=== PATIENT | female | born 1955 | race Caucasian/White ===

== ENCOUNTER → 2017-10-30 | Outpatient (CLI) | payer BC ==
[~2017-10-30] MED LIST: AMLO10TA3 PO; CALC500C70 PO; CLB/200 PO; CONJ0.3T3 PO; KLN/5 PO; METO-217 PO; OMEG10007 PO; PANT40TA PO
--- NOTE | 2017-10-30 10:25 | Discharge Instructions ---
Discharge Instructions Procedure Procedure Date: Oct 30, 2017. Reason for visit: Left Breast Mass. Discharge Discharge Date: Oct 30, 2017. Discharge Diagnosis: post bilateral breast ultrasound guided core biopsies Instructions Activity Recommendations: Additional Limitations (see below) Return to School/Work: no limitations Recommended Home Diet: No Limitations Provider Instructions: ACTIVITY RECOMMENDATIONS: * No lifting, pushing, pulling or exercising the affected side for three days. RETURN TO SCHOOL/WORK: * You may return to work/school after the procedure, but do not perform any strenuous activities for 24 to 48 hours. MEDICATIONS: * Tylenol (two 325 mg) every four to six hours if needed for mild pain (if not allergic to Tylenol). DIET: * Resume previous diet. SPECIAL CARE INSTRUCTIONS: * Keep biopsy site dry for 24 hours. May shower after 24 hours, but do not soak (bathe) incision. May remove Tegaderm (plastic patch) 24 hours after procedure * Leave the steri-strips on for one week. Allow the steri-strips to fall off by themselves. If not off after one week, you may remove them. You may place a Bandaid crosswise over the strips, if desired. * Apply ice 10 minutes on and 10 minutes off as needed. * Wear a bra at bedtime to sleep more comfortably for 2-3 days. * Your referring physician should have the results after approximately 5 to 7 business days. * Call for unusual bleeding, fever, drainage, etc or if you have any questions call [phone] during normal business hours or after hours call Dr Mcginnis, . FOLLOW UP VISIT: Follow-up with Referring Physician as scheduled. Allergies Coded Allergies: No Known Allergies (Verified , 10/10/17) Maria Del Rosario Appiah Recommendations: Call your doctor if: * Temperature above 101 degrees * Pain not relieved by pain medicine ordered * There is increased drainage or redness from any incision * You have any unanswered questions or concerns. Your Doctors Instructions noted above were prepared by provider Lyssa Mcginnis. Patient Signature Section: Patient Instructions Signature Page Hans Lewis Patient (or Guardian) Signature/Date: I have read and understand the instructions given to me by my caregivers. Caregiver/RN/Doctor Signature/Date: The above-named patient and/or guardian has received patient instructions on this date. + Original Patient Signature Page (only) stays with chart. Please make copy for patient.
--- NOTE | 2017-10-30 15:10 | MAMMOGRAPHY REPORT ---
ULTRASOUND GUIDED BIOPSY RIGHT BREAST: 10/30/2017 CLINICAL HISTORY: Patient presents for biopsy in the left 9:00 breast for an 8 x 9 mm mass identified on targeted ultrasound during diagnostic workup at an outside institution. Prior to this biopsy, brenda ateral tomosynthesis images were also obtained given that they were not performed [facility]. Please refer the report from left breast ultrasound-guided core biopsy performed at the same time for full detail. IMPRESSION: ULTRASOUND GUIDED BIOPSY Please refer to the report from left breast ultrasound-guided core biopsy performed at the same time for full detail. Lyssa Mcginnis M.D. ay/:10/30/2017 12:22:20 Attending Technologist: RT Marva(Analy)(M), [facility] Photographer Motion Picture: Lyssa Mcginnis, [facility]
--- NOTE | 2017-10-30 15:10 | MAMMOGRAPHY REPORT ---
THIS REPORT HAS BEEN AMENDED. ULTRASOUND GUIDED BIOPSY LEFT BREAST: 10/30/2017 CLINICAL HISTORY: 62-year-old woman presented for ultrasound-guided core biopsy of an indeterminate 8 x 9 mm mass in the 9:00 left breast, 3 cm from the nipple identified during workup at an outside ins titution. Prior to the biopsy, I performed bilateral tomosynthesis mammograms, as they were not done at the outside institution, as some subtle findings are only seen on the 3D images. COMPARISON: Comparison is made to exams dated: 10/11/2017 mammogram, 09/08/2015 mammogram, 11/22/2013 m ammogram, 10/03/2011 mammogram, 10/05/2010 mammogram, and 09/18/2017 mammogram. PATIENT CONSENT: The procedure, risks and benefits were discussed with the patient and informed conse nt was obtained both verbally and in writing. Specific risks to this procedure include: bleeding, in fection, puncture of adjacent structure, nontarget biopsy, sampling error, pain, metal allergy and me dication reaction. FINDINGS: First bilateral CC and MLO tomosynthesis images were performed. There is a gently lobulate d, partially circumscribed 10 x 5 x 5 mm mass in the lower inner anterior left breast, which correspo nds with the ultrasound findings seen in the 9:00 axis, 3 cm from the nipple. This is the intended t arget for today's ultrasound-guided core biopsy. No other suspicious masses, asymmetries, areas of a rchitectural distortion or suspicious calcifications are identified in the left breast on the tomosyn thesis images. However, there is nodularity in the posterior 6:00 to 7:00 right breast, with the largest masslike co mponent seen in the 7:00 posterior breast measuring approximately 8 x 4 x 5 mm. Further evaluation w ith ultrasound was performed in the right breast. Targeted ultrasound performed today in the right 6:00 and 7:00 breast demonstrates a small anechoic a nd isoechoic solid versus cystic mass in the 6:00 periareolar right breast measuring 3.1 x 2.3 x 2.4 mm. There is a slightly larger gently lobulated hypoechoic solid versus cystic mass in the 7:00 righ t breast, 4 cm from the nipple, measuring 6.5 x 3.2 x 5.1 mm. This likely correlates with the nodula rity seen mammographically and ultrasound-guided core biopsy of this largest indeterminate hypoechoic solid versus cystic mass in the 7:00 right breast is also recommended. Therefore, the plan will be to biopsy masses in both breasts. Please see below. PROCEDURE DESCRIPTION: A time out was performed and both breasts were agreed as sites of ultrasound-g uided core biopsy. First the mass in the 9:00 left breast was identified and targeted for biopsy. T he skin of the left breast was prepped and draped in the usual sterile fashion. The left 9:00 breast mass was identified. Subcutaneous and intraparenchymal 1% buffered lidocaine, with and without epine phrine, was administered as local anesthesia. A skin incision was made. Through the incision, four s amples were taken with a 14 gauge Achieve biopsy device. A ribbon shaped metallic marker was placed a t the biopsy site. Hemostasis was achieved after manual compression. The patient tolerated the proced ure well and there was no immediate complication. Second, the 7 mm mass in the 7:00 right breast was identified and targeted for biopsy. The skin of t he right breast was cleansed with Betadine and sterile drapes were placed. 1% buffered lidocaine wit h and without epinephrine was administered as local anesthesia. A small skin incision was made in th e right breast. Through the incision, four samples were taken with a 14 gauge Achieve biopsy device. A ribbon shaped metallic marker was placed at the biopsy site. Hemostasis was achieved after manual compression. The patient tolerated the procedure well and there was no immediate complication. All of the samples were sent to the pathology department in appropriately labeled containers. New ribbon-shaped biopsy marker clips are seen in each breast. The left breast biopsy clip aligns wi th the mammographic mass in question and the right biopsy clip aligns with the oval mammographic mass in question in the 7:00 posterior breast. No significant postbiopsy hematoma identified bilaterally . Pending benign pathology results, would recommend a follow-up right diagnostic tomosynthesis mammo gram and repeat targeted ultrasound to ensure stability of the non-biopsied mixed isoechoic and anech oic 3 mm mass in the 6:00 right breast. IMPRESSION: ULTRASOUND GUIDED BIOPSY 1. Prior to biopsy bilateral tomosynthesis images were performed which demonstrated nodularity in th e 6:00 to 7:00 right breast for which a diagnostic ultrasound was performed and biopsy was recommende d of a dominant indeterminate solid versus cystic 7 mm mass seen in the 7:00 right breast. Therefore , bilateral breast biopsies were performed during today's appointment. 2. Status post biopsy of the right breast mass at 7:00, and left breast mass at 9:00, with biopsy ma rker clips placed at each site. 3. Pending benign pathology results, would recommend a follow-up right diagnostic tomosynthesis mamm ogram and a repeat targeted ultrasound in the 6:00 axis, for the small non-biopsied solid versus cyst ic mass identified on today's ultrasound workup. The patient will receive notification of the biopsy results from her referring physician. Lyssa Mcginnis M.D. ay/:10/30/2017 12:30:50 Attending Technologist: RT Marva(Analy)(M), [facility] Licensed Physical Therapist Assistant: Lyssa Mcginnis, [facility] AMENDMENT: 11/01/2017 Lyssa Mcginnis M.D. Pathology results from ultrasound-guided core biopsy of an 8 x 9 mm solid-appearing mass in the 9:00 left breast yielded a fibroadenoma. 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 The pathology results from bilateral biopsies are benign and concordant with the imag ing appearance. However, it is somewhat controversial whether all intraductal papillomas without atypical features, s uch as this case, require follow-up excisional biopsy. Additionally, a six-month follow-up is still recommended for the non-biopsied small, 3.1 mm mass in the 6:00 periareolar right breast identified o n targeted ultrasound. Could consider surgical consultation for discussion of options, with regard t o surgical excisional biopsy versus continued follow-up imaging.
--- NOTE | 2017-10-30 15:12 | MAMMOGRAPHY REPORT ---
BILATERAL DIGITAL DIAGNOSTIC MAMMOGRAM TOMOSYNTHESIS WITH CAD: 10/30/2017 CLINICAL HISTORY: 62-year-old woman presented for biopsy of the left 9:00 breast mass. Preliminary to mosynthesis images also found a possible mass in the 6:00 to 7:00 right breast for which targeted ult rasound and ultimately ultrasound-guided core biopsy was also performed. Please refer to the report from left breast ultrasound-guided core biopsy performed at the same time for full detail. COMPARISON: Prior mammograms dated 09/18/2017, 09/08/2015, 11/22/2013, 10/03/2011, 10/05/2010. IMPRESSION: POST PROCEDURE IMAGING FOR MARKER PLACEMENT Please refer to the report from left breast ultrasound-guided core biopsy performed at the same time for full detail. Some breast cancers are not detected with mammography. A negative mammographic report should not luz y biopsy if a clinically suggestive mass is present. Lyssa Mcginnis M.D. ay/:10/30/2017 10:27:11 Fruit Buying Grader: RT Marva(Analy)(M), [facility] BI-RADS Code: Post Procedure Imaging For Marker Placement
--- NOTE | 2017-10-31 14:45 | MAMMOGRAPHY REPORT ---
ULTRASOUND OF RIGHT BREAST: 10/30/2017 CLINICAL HISTORY: 62-year-old woman initially presented for biopsy of the solid-appearing mass in the 9:00 left breast, identified at an outside institution. Prior to the biopsy, tomosynthesis images of both breasts were performed to ensure no subtle distortions existed prior to the left breast biopsy. An area of nodularity was noted in the 6:00 to 7:00 posterior right breast on the tomosynthesis imag es for which targeted second look ultrasound was performed in the right breast. Please refer to the report from left breast ultrasound-guided core biopsy performed at the same time for full detail. IMPRESSION: ACR BI-RADS CATEGORY 4: SUSPICIOUS Please refer to the report from left breast ultrasound-guided core biopsy performed at the same time for full detail. Lyssa Mcginnis M.D. ay/:10/30/2017 16:11:48 Attending Technologist: RT Marva(Analy)(M), [facility] Floor Assembler: Lyssa Mcginnis, [facility] letter sent: Abnormal 4/5 BI-RADS Code: ACR BI-RADS Category 4: Suspicious
== END | disposition home or self-care (01) ==
LOC: C.MAMM 09:04
PROVIDERS: ATTEND Family Medicine
DX: D24.2 Benign neoplasm of left breast (principal); D24.1 Benign neoplasm of right breast; N60.91 Unspecified benign mammary dysplasia of right breast